=== PATIENT | male | born 1950 | race Caucasian/White ===

== ENCOUNTER → 2016-04-09 | Outpatient (CLI) | payer SELFPAY ==
[~2016-04-09] MED LIST: ALEVE220 M2 PO; Aldactone PO; CORGARD20 MG PO; Corgard PO; FERROUS SULFATE PO; Feosol PO; IRON325 MG PO; K-DUR20 MEQ PO; KLOR-CON 1010 MEQ PO; KLOR-CON M2020 MEQ PO; LASIX2 MG/1 ML PO; LASIX40 MG PO; Lasix PO; OMEPRAZOLE40 M1 PO; POTABA500 MG PO; PRILOSEC20 MG PO; PROTONIX40 MG PO; RANITIDINE HCL150 MG PO; SPIRONOLACTONE100 MG PO; SPIRONOLACTONE25 MG PO; ULTRAM50 MG PO; ZANTAC150 MG PO
== END | disposition home or self-care (01) ==
LOC: RAD 04-04 13:15 → EDSTATUS 08:30 → RAD 08:30
PROC: 0W9G3ZZ Drainage of Peritoneal Cavity, Percutaneous Approach (ICD-10-PCS; principal; 2016-04-09)
DX: K70.31 Alcoholic cirrhosis of liver with ascites (principal)

== ENCOUNTER → 2016-04-12 | Outpatient (CLI) | payer SELFPAY | END | disposition home or self-care (01) | LOC: RAD 08:18 → EDSTATUS 08:30 | PROC: 0W9G3ZZ Drainage of Peritoneal Cavity, Percutaneous Approach (ICD-10-PCS; principal; 2016-04-12) | DX: K70.31 Alcoholic cirrhosis of liver with ascites (principal) ==

== ENCOUNTER → 2016-04-15 | Outpatient (CLI) | payer SELFPAY | END | disposition home or self-care (01) | LOC: RAD 12:48 → EDSTATUS 13:30 → RAD 13:30 | PROC: 0W9G3ZZ Drainage of Peritoneal Cavity, Percutaneous Approach (ICD-10-PCS; principal; 2016-04-15) | DX: K70.31 Alcoholic cirrhosis of liver with ascites (principal) ==

== ENCOUNTER → 2016-04-18 | Outpatient (CLI) | payer SELFPAY | END | disposition home or self-care (01) | LOC: RAD 13:04 → EDSTATUS 13:15 → RAD 13:15 | PROC: 0W9G3ZZ Drainage of Peritoneal Cavity, Percutaneous Approach (ICD-10-PCS; principal; 2016-04-18) | DX: K70.31 Alcoholic cirrhosis of liver with ascites (principal) ==

== ENCOUNTER → 2016-04-22 | Outpatient (CLI) | payer SELFPAY | END | disposition home or self-care (01) | LOC: RAD 08:15 → EDSTATUS 08:15 → RAD 08:25 | PROC: 0W9G3ZZ Drainage of Peritoneal Cavity, Percutaneous Approach (ICD-10-PCS; principal; 2016-04-22) | DX: K70.31 Alcoholic cirrhosis of liver with ascites (principal) ==

== ENCOUNTER → 2016-04-26 | Outpatient (CLI) | payer OTHER | END | disposition home or self-care (01) | LOC: EDSTATUS 03-29 08:30 → RAD 03-29 08:30 | PROC: 0W9G3ZZ Drainage of Peritoneal Cavity, Percutaneous Approach (ICD-10-PCS; principal; 2016-04-26) | DX: K70.31 Alcoholic cirrhosis of liver with ascites (principal) ==

== ENCOUNTER → 2016-04-29 | Outpatient (CLI) | payer OTHER | END | disposition home or self-care (01) | LOC: RAD 08:07 → EDSTATUS 08:15 | PROC: 0W9G3ZZ Drainage of Peritoneal Cavity, Percutaneous Approach (ICD-10-PCS; principal; 2016-04-29) | DX: K70.31 Alcoholic cirrhosis of liver with ascites (principal) ==

== ENCOUNTER → 2016-05-02 | Outpatient (CLI) | payer OTHER | END | disposition home or self-care (01) | LOC: EDSTATUS 04-03 13:15 → RAD 04-03 13:15 | PROC: 0W9G3ZZ Drainage of Peritoneal Cavity, Percutaneous Approach (ICD-10-PCS; principal; 2016-05-02) | DX: K70.31 Alcoholic cirrhosis of liver with ascites (principal) ==

== ENCOUNTER → 2016-05-06 | Outpatient (CLI) | payer OTHER | END | disposition home or self-care (01) | LOC: RAD 12:47 → EDSTATUS 13:15 → RAD 13:15 | PROC: 0W9G3ZZ Drainage of Peritoneal Cavity, Percutaneous Approach (ICD-10-PCS; principal; 2016-05-06) | DX: K70.31 Alcoholic cirrhosis of liver with ascites (principal) ==

== ENCOUNTER 2016-05-09 15:30 | Emergency (ER) | payer OTHER ==
[~2016-05-09] VITALS: Ht 182.9 cm; Wt 86.5 kg
[2016-05-09 17:12] LABS: CHLORIDE 107 mEq/L (99-109); POTASSIUM 4.6 mEq/L (3.7-5.4); SODIUM 136 mEq/L (136-147)
[2016-05-09 17:14] LABS: GLUCOSE 99 mg/dL (70-99)
[2016-05-09 17:15] LABS: ANION GAP 8 MEQ/L (2-14)
[2016-05-09 17:18] LABS: GFR ESTIMATE (CALCULATED) > 59 mL/min/
[2016-05-09 17:19] LABS: UREA NITROGEN (BUN) 48 mg/dL (9-23)
[2016-05-09 17:45] VITALS: BP 106/57
== END 2016-05-09 17:46 | disposition home or self-care (01) ==
LOC: EME 15:30
PROVIDERS: Emergency Medicine
DX: K92.1 Melena (principal); D64.9 Anemia, unspecified; K74.60 Unspecified cirrhosis of liver; F17.200 Nicotine dependence, unspecified, uncomplicated
CPT/HCPCS: 80048; 86850; 86870; 86900; 86901; 86905; 86920; 86999; 99281; 99284

== ENCOUNTER → 2016-05-09 | Outpatient (CLI) | payer OTHER | END | disposition home or self-care (01) | LOC: RAD 12:56 → EDSTATUS 13:15 → RAD 13:15 | PROC: 0W9G3ZZ Drainage of Peritoneal Cavity, Percutaneous Approach (ICD-10-PCS; principal; 2016-05-09) | DX: K70.31 Alcoholic cirrhosis of liver with ascites (principal) ==

== ENCOUNTER → 2016-05-13 | Outpatient (CLI) | payer OTHER | END | disposition home or self-care (01) | LOC: RAD 12:56 → EDSTATUS 13:30 → RAD 13:30 | PROC: 0W9G3ZZ Drainage of Peritoneal Cavity, Percutaneous Approach (ICD-10-PCS; principal; 2016-05-13) | DX: K70.31 Alcoholic cirrhosis of liver with ascites (principal) ==

== ENCOUNTER → 2016-05-17 | Outpatient (CLI) | payer OTHER | END | disposition home or self-care (01) | LOC: RAD 07:38 → EDSTATUS 08:15 → RAD 08:15 | DX: K70.31 Alcoholic cirrhosis of liver with ascites (principal) ==

== ENCOUNTER → 2016-05-20 | Outpatient (CLI) | payer OTHER | END | disposition home or self-care (01) | LOC: RAD 11:18 → EDSTATUS 13:30 → RAD 13:30 | PROC: 0W9G3ZZ Drainage of Peritoneal Cavity, Percutaneous Approach (ICD-10-PCS; principal; 2016-05-20) | DX: K70.31 Alcoholic cirrhosis of liver with ascites (principal) ==

== ENCOUNTER → 2016-05-24 | Outpatient (CLI) | payer OTHER | END | disposition home or self-care (01) | LOC: RAD 07:02 → EDSTATUS 08:15 → RAD 08:15 | PROC: 0W9G3ZZ Drainage of Peritoneal Cavity, Percutaneous Approach (ICD-10-PCS; principal; 2016-05-24) | DX: K70.31 Alcoholic cirrhosis of liver with ascites (principal) ==

== ENCOUNTER → 2016-05-27 | Outpatient (CLI) | payer OTHER | END | disposition home or self-care (01) | LOC: RAD 13:14 → EDSTATUS 13:30 | PROC: 0W9G3ZZ Drainage of Peritoneal Cavity, Percutaneous Approach (ICD-10-PCS; principal; 2016-05-27) | DX: K70.31 Alcoholic cirrhosis of liver with ascites (principal) ==

== ENCOUNTER → 2016-05-30 | Outpatient (CLI) | payer OTHER | END | disposition home or self-care (01) | LOC: RAD 12:59 → EDSTATUS 13:30 → RAD 13:30 | PROC: 0W9G3ZZ Drainage of Peritoneal Cavity, Percutaneous Approach (ICD-10-PCS; principal; 2016-05-30) | DX: K70.31 Alcoholic cirrhosis of liver with ascites (principal) ==

== ENCOUNTER → 2016-06-03 | Outpatient (CLI) | payer OTHER | END | disposition home or self-care (01) | LOC: RAD 13:29 | PROC: 0W9G3ZZ Drainage of Peritoneal Cavity, Percutaneous Approach (ICD-10-PCS; principal; 2016-06-03) | DX: K70.31 Alcoholic cirrhosis of liver with ascites (principal) ==

== ENCOUNTER → 2016-06-06 | Outpatient (CLI) | payer OTHER ==
[~2016-06-06] MED LIST changes: +ALDACTONE25 MG PO; +ALDACTONE50 MG PO; +LASIX80 MG PO; +PANTOPRAZOLE SO40 MG PO; +RANITIDINE HCL150 M1 PO; +VENTOLIN HFA18 GM IH
== END | disposition home or self-care (01) ==
LOC: RAD 06:58
PROC: 0W9G3ZZ Drainage of Peritoneal Cavity, Percutaneous Approach (ICD-10-PCS; principal; 2016-06-06)
DX: K70.31 Alcoholic cirrhosis of liver with ascites (principal)

== ENCOUNTER 2016-06-08 09:50 | Inpatient (IN) | payer OTHER ==
[~2016-06-08] VITALS: Ht 177.8 cm; Wt 96.0 kg
[2016-06-08] VITALS (11 sets, daily range): BP systolic 97–112; BP diastolic 50–69
[~2016-06-08 09:50] MED LIST changes: -ALDACTONE25 MG PO; -ALDACTONE50 MG PO; -LASIX80 MG PO; -PANTOPRAZOLE SO40 MG PO; -RANITIDINE HCL150 M1 PO; -VENTOLIN HFA18 GM IH
[2016-06-08 11:12] LABS: INTER. NORMALIZED RATIO 1.3; PROTHROMBIN TIME 12.8 (9.2-11.2); PTT 25.4 (25-32)
[2016-06-08 11:15] LABS: EOSINOPHIL (%) 0.4 % (0-5); HEMATOCRIT 22.4 % (38.0-50.0); IMMATURE GRANULOCYTE (%) 0.2 % (0.0-0.7); IMMATURE GRANULOCYTE COUNT 0.1 K/uL; LYMPHOCYTE COUNT 0.4 K/uL (1.0-2.8); MCH 21.3 PG (29.0-34.0); MCHC 29.5 G/DL (30.0-36.0); MCV 72.3 FL (86-99); MEAN PLAT.VOLUME 10.7 uM^3 (9.0-12.4); MONOCYTE (%) 8.9 % (3-12); MONOCYTE COUNT 0.5 K/uL (0-0.8); NEUTROPHIL COUNT 4.1 K/uL (1.8-6.4); PLATELET COUNT 109 K/uL (156-360); RBC DIS.WIDTH-CV 20.3 % (11.8-14.6); RBC DIS.WIDTH-SD 51.6 % (39-53); WHITE BLOOD COUNT 5.1 K/uL (4.1-10.2)
[2016-06-08 11:19] LABS: CHLORIDE 104 mEq/L (99-109); POTASSIUM 4.6 mEq/L (3.7-5.4); SODIUM 132 mEq/L (136-147)
[2016-06-08 11:21] LABS: GLUCOSE 114 mg/dL (70-99)
[2016-06-08 11:22] LABS: ANION GAP 5 MEQ/L (2-14)
[2016-06-08 11:23] LABS: TOTAL BILIRUBIN 1.2 mg/dL (0.0-1.0)
[2016-06-08 11:24] LABS: ALKALINE PHOSPHATASE 83 IU/L (3-129); TROP-I INTERPRETATION NEGATIVE; TROPONIN-I < 0.01 ng/mL (0.0-0.30)
[2016-06-08 11:25] LABS: GFR ESTIMATE (CALCULATED) > 59 mL/min/
[2016-06-08 11:26] LABS: UREA NITROGEN (BUN) 24 mg/dL (9-23)
[2016-06-08 11:28] LABS: LIPASE 71 U/L (1.0-51.0)
[2016-06-08 11:52] LABS: PLAT.SUFFICIENCY DECREASED; USER ID MCB
[2016-06-08] MEDS ORDERED: LASIX80 MG PO (14:25)
[2016-06-08] MEDS ORDERED: ZANTAC150 MG PO (14:26)
[2016-06-08] MEDS ORDERED: ALDACTONE50 MG PO (14:27)
[2016-06-08] MEDS ORDERED: ALDACTONE25 MG PO (14:27)
[2016-06-09] VITALS (13 sets, daily range): BP systolic 78–113; BP diastolic 46–70
[2016-06-09 03:27] LABS: HEMATOCRIT 25.2 % (38.0-50.0); MCV 74.6 FL (86-99)
[2016-06-09 10:29] LABS: INTER. NORMALIZED RATIO 1.3; PROTHROMBIN TIME 12.8 (9.2-11.2)
[2016-06-09 10:34] LABS: EOSINOPHIL (%) 4.4 % (0-5); EOSINOPHIL COUNT 0.1 K/uL (0-0.3); HEMATOCRIT 25.5 % (38.0-50.0); IMMATURE GRANULOCYTE (%) 0.3 % (0.0-0.7); LYMPHOCYTE COUNT 0.6 K/uL (1.0-2.8); MCH 23.2 PG (29.0-34.0); MONOCYTE (%) 12.5 % (3-12); MONOCYTE COUNT 0.4 K/uL (0-0.8); NEUTROPHIL (%) 61.9 % (45-76); NEUTROPHIL COUNT 1.8 K/uL (1.8-6.4); RBC DIS.WIDTH-CV 20.1 % (11.8-14.6); RBC DIS.WIDTH-SD 54.9 % (39-53)
[2016-06-09 10:55] LABS: ALKALINE PHOSPHATASE 71 IU/L (3-129); ANION GAP 5 MEQ/L (2-14); CHLORIDE 104 MEQ/L (99-109); GFR ESTIMATE (CALCULATED) > 59 mL/min/; GLUCOSE 106 mg/dL (70-99); POTASSIUM 4.4 MEQ/L (3.7-5.4); SAMPLE HEMOLYSIS CHECK 0; SAMPLE ICTERIC CHECK 0; SAMPLE LIPEMIA CHECK 0; SODIUM 131 MEQ/L (136-147); TOTAL BILIRUBIN 1.3 MG/DL (0.0-1.0); UREA NITROGEN (BUN) 25 mg/dL (9-23)
[2016-06-09 11:14] LABS: PLAT.SUFFICIENCY DECREASED; USER ID TLW
[2016-06-09 11:28] LABS: PLATELET COUNT 60 K/uL (156-360)
[2016-06-09 13:43] LABS: TYPE OF FLUID PERITONEAL
[2016-06-09 14:11] LABS: BODY FLUID RBC'S 2000 /MM^3 (0-100); BODY FLUID WBC'S 102 /MM^3 (0-500)
[2016-06-09 14:46] LABS: BODY FLUID EOSINOPHILS 0 % (0-25); MONO RAW COUNT 84; MONONUCLEAR WBC'S 84 %; POLY RAW COUNT 16; POLYNUCLEAR WBC'S 16 % (0-25)
[2016-06-10] VITALS (8 sets, daily range): BP systolic 11–116; BP diastolic 44–64
[2016-06-10 07:31] LABS: ANION GAP 6 MEQ/L (2-14); CHLORIDE 102 MEQ/L (99-109); GFR ESTIMATE (CALCULATED) > 59 mL/min/; GLUCOSE 83 mg/dL (70-99); POTASSIUM 3.8 MEQ/L (3.7-5.4); SAMPLE HEMOLYSIS CHECK 0; SAMPLE ICTERIC CHECK 0; SAMPLE LIPEMIA CHECK 0; SODIUM 132 MEQ/L (136-147); UREA NITROGEN (BUN) 21 mg/dL (9-23)
[2016-06-10 07:38] LABS: EOSINOPHIL (%) 3.9 % (0-5); EOSINOPHIL COUNT 0.1 K/uL (0-0.3); HEMATOCRIT 24.8 % (38.0-50.0); IMMATURE GRANULOCYTE (%) 0.4 % (0.0-0.7); LYMPHOCYTE COUNT 0.5 K/uL (1.0-2.8); MCH 22.9 PG (29.0-34.0); MCHC 30.6 G/DL (30.0-36.0); MCV 74.7 FL (86-99); MONOCYTE (%) 14.5 % (3-12); MONOCYTE COUNT 0.4 K/uL (0-0.8); NEUTROPHIL (%) 62.4 % (45-76); NEUTROPHIL COUNT 1.6 K/uL (1.8-6.4); RBC DIS.WIDTH-CV 20.1 % (11.8-14.6); RED BLOOD COUNT 3.32 M/uL (4.00-5.50); WHITE BLOOD COUNT 2.6 K/uL (4.1-10.2)
[2016-06-10 07:41] LABS: PLAT.SUFFICIENCY DECREASED; PLATELET COUNT 54 K/uL (156-360); USER ID STC
[2016-06-10] MEDS ORDERED: PANTOPRAZOLE SO40 MG PO (14:32)
[2016-06-10] MEDS ORDERED: VENTOLIN HFA18 GM IH (14:37)
[2016-06-10 17:31] LABS: HEMATOCRIT 31.9 % (38.0-50.0); HEMATOLOGY COMMENT 1 SMEAR COMPATIBLE; MCH 23.6 PG (29.0-34.0); MCHC 30.7 G/DL (30.0-36.0); MCV 76.9 FL (86-99); RBC DIS.WIDTH-CV 20.2 % (11.8-14.6); RBC DIS.WIDTH-SD 55.8 % (39-53)
[2016-06-10 17:36] LABS: PLATELET COUNT 78 K/uL (156-360); RED BLOOD COUNT 4.15 M/uL (4.00-5.50); WHITE BLOOD COUNT 3.9 K/uL (4.1-10.2)
[2016-06-13] MEDS ORDERED: RANITIDINE HCL150 M1 PO (13:10)
== END 2016-06-10 18:20 | disposition home or self-care (01) | DRG 378 ==
LOC: EME 09:50 → 4EAST 14:19 → EDOF 14:19 → 4EAST 16:04
PROVIDERS: Emergency Medicine; Internal Medicine; Specialist
PROC: 30233N1 Transfusion of Nonautologous Red Blood Cells into Peripheral Vein, Percutaneous Approach (ICD-10-PCS; principal; 2016-06-08)
PROC: 0W9G3ZZ Drainage of Peritoneal Cavity, Percutaneous Approach (ICD-10-PCS; 2016-06-09)
DX: K92.1 Melena (principal); D62 Acute posthemorrhagic anemia; K76.6 Portal hypertension; D61.818 Other pancytopenia; D68.4 Acquired coagulation factor deficiency; K31.89 Other diseases of stomach and duodenum; K70.31 Alcoholic cirrhosis of liver with ascites; F10.21 Alcohol dependence, in remission; E83.51 Hypocalcemia; F17.210 Nicotine dependence, cigarettes, uncomplicated; J44.9 Chronic obstructive pulmonary disease, unspecified; E66.9 Obesity, unspecified; Z68.30 Body mass index [BMI] 30.0-30.9, adult
CPT/HCPCS: 71010; 80048; 80053; 81003; 82040; 83690; 84484; 85007; 85014; 85018; 85025; 85027; 85610; 85730; 86850; 86870; 86900; 86901; 86905; 86920; 87070; 87075; 87205; 88108; 89051; 93005; 99281; 99285; C9113; J0610; J0696; J2354; J2405; J7030; J7050; P9016; P9040; P9047

== ENCOUNTER → 2016-06-13 | Outpatient (CLI) | payer OTHER ==
[~2016-06-13] MED LIST changes: +ALDACTONE25 MG PO; +ALDACTONE50 MG PO; +LASIX80 MG PO; +PANTOPRAZOLE SO40 MG PO; +RANITIDINE HCL150 M1 PO; +VENTOLIN HFA18 GM IH
== END | disposition home or self-care (01) ==
LOC: RAD 12:11
PROC: 0W9G3ZZ Drainage of Peritoneal Cavity, Percutaneous Approach (ICD-10-PCS; principal; 2016-06-13)
DX: K70.31 Alcoholic cirrhosis of liver with ascites (principal)

== ENCOUNTER → 2016-06-17 | Outpatient (CLI) | payer OTHER | END | disposition home or self-care (01) | LOC: RAD 12:47 | PROC: 0W9G3ZZ Drainage of Peritoneal Cavity, Percutaneous Approach (ICD-10-PCS; principal; 2016-06-17) | DX: K70.31 Alcoholic cirrhosis of liver with ascites (principal) ==

== ENCOUNTER → 2016-06-20 | Outpatient (CLI) | payer OTHER ==
[2016-06-20 09:47] LABS: HEMATOCRIT 24.8 % (38.0-50.0); MCV 77.7 FL (86-99)
[2016-06-20 09:47] LABS: TYPE OF FLUID PARACENTESIS
[2016-06-20 10:51] LABS: BODY FLUID RBC'S 170000 /MM^3 (0-100); BODY FLUID WBC'S 184 /MM^3 (0-500)
[2016-06-20 11:26] LABS: BODY FLUID EOSINOPHILS 0 % (0-25); MONO RAW COUNT 90; MONONUCLEAR WBC'S 90 %; POLY RAW COUNT 10; POLYNUCLEAR WBC'S 10 % (0-25)
== END | disposition home or self-care (01) ==
LOC: RAD 07:01
PROVIDERS: Internal Medicine; Radiology Diagnostic Radiology
PROC: 0W9G3ZZ Drainage of Peritoneal Cavity, Percutaneous Approach (ICD-10-PCS; principal; 2016-06-20)
DX: K70.31 Alcoholic cirrhosis of liver with ascites (principal)
CPT/HCPCS: 85014; 85018; 87070; 87075; 87205; 89051

== ENCOUNTER → 2016-06-24 | Outpatient (CLI) | payer OTHER | END | disposition home or self-care (01) | LOC: RAD 12:25 | PROC: 0W9G3ZZ Drainage of Peritoneal Cavity, Percutaneous Approach (ICD-10-PCS; principal; 2016-06-24) | DX: K70.31 Alcoholic cirrhosis of liver with ascites (principal) ==

== ENCOUNTER → 2016-06-27 | Outpatient (CLI) | payer OTHER | END | disposition home or self-care (01) | LOC: RAD 11:58 | PROC: 0W9G3ZZ Drainage of Peritoneal Cavity, Percutaneous Approach (ICD-10-PCS; principal; 2016-06-27) | DX: K70.31 Alcoholic cirrhosis of liver with ascites (principal) ==

== ENCOUNTER → 2016-07-01 | Outpatient (CLI) | payer OTHER | END | disposition home or self-care (01) | LOC: RAD 12:56 | PROC: 0W9G3ZZ Drainage of Peritoneal Cavity, Percutaneous Approach (ICD-10-PCS; principal; 2016-07-01) | DX: K70.31 Alcoholic cirrhosis of liver with ascites (principal) ==

== ENCOUNTER → 2016-07-04 | Outpatient (CLI) | payer OTHER | END | disposition home or self-care (01) | LOC: RAD 12:40 | PROC: 0W9G3ZZ Drainage of Peritoneal Cavity, Percutaneous Approach (ICD-10-PCS; principal; 2016-07-04) | DX: K70.31 Alcoholic cirrhosis of liver with ascites (principal) ==

== ENCOUNTER → 2016-07-08 | Outpatient (CLI) | payer OTHER | END | disposition home or self-care (01) | LOC: RAD 11:12 | PROC: 0W9G3ZZ Drainage of Peritoneal Cavity, Percutaneous Approach (ICD-10-PCS; principal; 2016-07-08) | DX: K70.31 Alcoholic cirrhosis of liver with ascites (principal) ==

== ENCOUNTER → 2016-07-11 | Outpatient (CLI) | payer OTHER | END | disposition home or self-care (01) | LOC: RAD 12:24 | PROC: 0W9G3ZZ Drainage of Peritoneal Cavity, Percutaneous Approach (ICD-10-PCS; principal; 2016-07-11) | DX: K70.31 Alcoholic cirrhosis of liver with ascites (principal) ==

== ENCOUNTER → 2016-07-15 | Outpatient (CLI) | payer OTHER | END | disposition home or self-care (01) | LOC: RAD 12:19 | PROC: 0W9G3ZZ Drainage of Peritoneal Cavity, Percutaneous Approach (ICD-10-PCS; principal; 2016-07-15) | DX: K70.31 Alcoholic cirrhosis of liver with ascites (principal) ==

== ENCOUNTER → 2016-07-17 | Outpatient (CLI) | payer OTHER | END | disposition home or self-care (01) | LOC: RAD 09:27 | PROC: 0W9G3ZZ Drainage of Peritoneal Cavity, Percutaneous Approach (ICD-10-PCS; principal; 2016-07-17) | DX: K70.31 Alcoholic cirrhosis of liver with ascites (principal) ==

== ENCOUNTER → 2016-07-19 | Outpatient (CLI) | payer OTHER | END | disposition home or self-care (01) | LOC: RAD 07:18 | PROC: 0W9G3ZZ Drainage of Peritoneal Cavity, Percutaneous Approach (ICD-10-PCS; principal; 2016-07-19) | DX: K70.31 Alcoholic cirrhosis of liver with ascites (principal) ==

== ENCOUNTER → 2016-07-22 | Outpatient (CLI) | payer OTHER | END | disposition home or self-care (01) | LOC: RAD 12:00 | PROC: 0W9G3ZZ Drainage of Peritoneal Cavity, Percutaneous Approach (ICD-10-PCS; principal; 2016-07-22) | DX: K70.31 Alcoholic cirrhosis of liver with ascites (principal) ==

== ENCOUNTER → 2016-07-25 | Outpatient (CLI) | payer OTHER | END | disposition home or self-care (01) | LOC: RAD 07:11 | PROC: 0W9G3ZZ Drainage of Peritoneal Cavity, Percutaneous Approach (ICD-10-PCS; principal; 2016-07-25) | DX: K70.31 Alcoholic cirrhosis of liver with ascites (principal) ==

== ENCOUNTER → 2016-07-29 | Outpatient (CLI) | payer OTHER | END | disposition home or self-care (01) | LOC: RAD 12:34 | PROC: 0W9G3ZZ Drainage of Peritoneal Cavity, Percutaneous Approach (ICD-10-PCS; principal; 2016-07-29) | DX: K70.31 Alcoholic cirrhosis of liver with ascites (principal) ==

== ENCOUNTER → 2016-08-01 | Outpatient (CLI) | payer OTHER | END | disposition home or self-care (01) | LOC: RAD 11:40 | PROC: 0W9G3ZZ Drainage of Peritoneal Cavity, Percutaneous Approach (ICD-10-PCS; principal; 2016-08-01) | DX: K70.31 Alcoholic cirrhosis of liver with ascites (principal) ==

== ENCOUNTER → 2016-08-05 | Outpatient (CLI) | payer OTHER | END | disposition home or self-care (01) | LOC: RAD 12:28 | PROC: 0W9G3ZZ Drainage of Peritoneal Cavity, Percutaneous Approach (ICD-10-PCS; principal; 2016-08-05) | DX: K70.31 Alcoholic cirrhosis of liver with ascites (principal) ==

== ENCOUNTER → 2016-08-08 | Outpatient (CLI) | payer OTHER | END | disposition home or self-care (01) | LOC: RAD 12:35 | PROC: 0W9G3ZZ Drainage of Peritoneal Cavity, Percutaneous Approach (ICD-10-PCS; principal; 2016-08-08) | DX: K70.31 Alcoholic cirrhosis of liver with ascites (principal) ==

== ENCOUNTER → 2016-08-12 | Outpatient (CLI) | payer OTHER | END | disposition home or self-care (01) | LOC: RAD 12:30 | PROC: 0W9G3ZZ Drainage of Peritoneal Cavity, Percutaneous Approach (ICD-10-PCS; principal; 2016-08-12) | DX: K70.31 Alcoholic cirrhosis of liver with ascites (principal) ==

== ENCOUNTER → 2016-08-15 | Outpatient (CLI) | payer OTHER | END | disposition home or self-care (01) | LOC: RAD 13:05 | PROC: 0W9G3ZZ Drainage of Peritoneal Cavity, Percutaneous Approach (ICD-10-PCS; principal; 2016-08-15) | DX: K70.31 Alcoholic cirrhosis of liver with ascites (principal) ==

== ENCOUNTER → 2016-08-19 | Outpatient (CLI) | payer OTHER | END | disposition home or self-care (01) | LOC: RAD 11:59 | PROC: 0W9G3ZZ Drainage of Peritoneal Cavity, Percutaneous Approach (ICD-10-PCS; principal; 2016-08-19) | DX: K70.31 Alcoholic cirrhosis of liver with ascites (principal) ==

== ENCOUNTER → 2016-08-22 | Outpatient (CLI) | payer OTHER | END | disposition home or self-care (01) | LOC: RAD 07:31 | PROC: 0W9G3ZZ Drainage of Peritoneal Cavity, Percutaneous Approach (ICD-10-PCS; principal; 2016-08-22) | DX: K70.31 Alcoholic cirrhosis of liver with ascites (principal) ==

== ENCOUNTER → 2016-08-26 | Outpatient (CLI) | payer OTHER | END | disposition home or self-care (01) | LOC: RAD 11:07 | PROC: 0W9G3ZZ Drainage of Peritoneal Cavity, Percutaneous Approach (ICD-10-PCS; principal; 2016-08-26) | DX: K70.31 Alcoholic cirrhosis of liver with ascites (principal) ==

== ENCOUNTER → 2016-08-29 | Outpatient (CLI) | payer OTHER | END | disposition home or self-care (01) | LOC: RAD 13:01 | PROC: 0W9G3ZZ Drainage of Peritoneal Cavity, Percutaneous Approach (ICD-10-PCS; principal; 2016-08-29) | DX: K70.31 Alcoholic cirrhosis of liver with ascites (principal) ==

== ENCOUNTER 2016-09-04 13:14 | Inpatient (IN) | payer OTHER ==
[~2016-09-04] VITALS: Ht 175.3 cm; Wt 95.3 kg
[2016-09-04] VITALS (10 sets, daily range): BP systolic 78–93; BP diastolic 52–60
[2016-09-04 13:46] LABS: HEMATOCRIT 30.3 % (38.0-50.0); MCH 19.3 PG (29.0-34.0); MCHC 27.4 G/DL (30.0-36.0); MCV 70.3 FL (86-99); PLATELET COUNT 156 K/uL (156-360); RBC DIS.WIDTH-CV 20.8 % (11.8-14.6); RBC DIS.WIDTH-SD 51.8 % (39-53); RED BLOOD COUNT 4.31 M/uL (4.00-5.50); WHITE BLOOD COUNT 7.3 K/uL (4.1-10.2)
[2016-09-04 13:48] LABS: INTER. NORMALIZED RATIO 1.2; PROTHROMBIN TIME 12.5 (9.2-11.2); PTT 23.7 (25-32)
[2016-09-04 13:49] LABS: CHLORIDE 105 mEq/L (99-109); POTASSIUM 4.5 mEq/L (3.7-5.4); SODIUM 135 mEq/L (136-147)
[2016-09-04 13:51] LABS: GLUCOSE 132 mg/dL (70-99)
[2016-09-04 13:53] LABS: ANION GAP 10 MEQ/L (2-14)
[2016-09-04 13:55] LABS: ALKALINE PHOSPHATASE 86 IU/L (3-129); GFR ESTIMATE (CALCULATED) > 59 mL/min/
[2016-09-04 13:56] LABS: UREA NITROGEN (BUN) 46 mg/dL (9-23)
[2016-09-04 14:01] LABS: TROP-I INTERPRETATION NEGATIVE; TROPONIN-I < 0.01 ng/mL (0.0-0.30)
[2016-09-04 19:20] LABS: METH RESISTANT S AUREUS PCR NEGATIVE (NEGATIVE)
[2016-09-04 19:24] LABS: PROBE CHECK PASS; SPECIMEN PROCESSING CONTROL PASS
[2016-09-04 23:40] LABS: POINT-OF-CARE METER ID UU13113803
[2016-09-05] VITALS (25 sets, daily range): BP systolic 70–91; BP diastolic 46–61
[2016-09-05 06:12] LABS: HEMATOCRIT 19.7 % (38.0-50.0); MCH 20.3 PG (29.0-34.0); MCHC 29.4 G/DL (30.0-36.0); MCV 68.9 FL (86-99); RBC DIS.WIDTH-CV 20.4 % (11.8-14.6); RBC DIS.WIDTH-SD 50.1 % (39-53)
[2016-09-05 07:12] LABS: ALKALINE PHOSPHATASE 57 IU/L (3-129); ANION GAP 5 MEQ/L (2-14); CHLORIDE 107 MEQ/L (99-109); GFR ESTIMATE (CALCULATED) > 59 mL/min/; GLUCOSE 91 mg/dL (70-99); POTASSIUM 4.4 MEQ/L (3.7-5.4); SAMPLE HEMOLYSIS CHECK 0; SAMPLE ICTERIC CHECK 0; SAMPLE LIPEMIA CHECK 0; SODIUM 134 MEQ/L (136-147); TOTAL BILIRUBIN 0.5 MG/DL (0.0-1.0); UREA NITROGEN (BUN) 51 mg/dL (9-23)
[2016-09-05 07:24] LABS: INTER. NORMALIZED RATIO 1.3; PROTHROMBIN TIME 13.4 (9.2-11.2); PTT 28.4 (25-32)
[2016-09-05 08:14] LABS: PLAT.SUFFICIENCY DECREASED
[2016-09-05 08:20] LABS: PLATELET COUNT 78 K/uL (156-360); RED BLOOD COUNT 2.86 M/uL (4.00-5.50); WHITE BLOOD COUNT 3.2 K/uL (4.1-10.2)
[2016-09-05 12:49] LABS: POINT-OF-CARE METER ID UU13113731
[2016-09-05 17:28] LABS: POINT-OF-CARE METER ID UU13113731; POINT-OF-CARE USER ID 606021424
[2016-09-05 20:30] LABS: HEMATOCRIT 20.2 % (38.0-50.0); MCH 20.3 PG (29.0-34.0); MCHC 29.2 G/DL (30.0-36.0); MCV 69.7 FL (86-99); RBC DIS.WIDTH-CV 20.4 % (11.8-14.6); RBC DIS.WIDTH-SD 50.6 % (39-53); WHITE BLOOD COUNT 3.8 K/uL (4.1-10.2)
[2016-09-05 20:46] LABS: ANION GAP 7 MEQ/L (2-14); CHLORIDE 104 MEQ/L (99-109); POTASSIUM 3.3 MEQ/L (3.7-5.4); SAMPLE HEMOLYSIS CHECK 0; SAMPLE ICTERIC CHECK 0; SAMPLE LIPEMIA CHECK 0; SODIUM 133 MEQ/L (136-147); TOTAL BILIRUBIN 0.6 MG/DL (0.0-1.0)
[2016-09-05 20:49] LABS: ALKALINE PHOSPHATASE 59 IU/L (3-129); GFR ESTIMATE (CALCULATED) > 59 mL/min/; GLUCOSE 113 mg/dL (70-99); UREA NITROGEN (BUN) 49 mg/dL (9-23)
[2016-09-05 21:03] LABS: PLAT.SUFFICIENCY DECREASED; PLATELET CLUMPS PRESENT - PLATELET COUNTS APPEARS DECREASED
[2016-09-05 21:08] LABS: PLATELET COUNT UNABLE TO REPORT K/uL (156-360)
[2016-09-06] VITALS (16 sets, daily range): BP systolic 67–90; BP diastolic 34–53
[2016-09-06 09:29] LABS: HEMATOCRIT 25.1 % (38.0-50.0); MCH 21.8 PG (29.0-34.0); MCHC 29.9 G/DL (30.0-36.0); RBC DIS.WIDTH-CV 22.5 % (11.8-14.6); RBC DIS.WIDTH-SD 59.1 % (39-53); RED BLOOD COUNT 3.44 M/uL (4.00-5.50); WHITE BLOOD COUNT 4.6 K/uL (4.1-10.2)
[2016-09-06 09:30] LABS: PLATELET COUNT 74 K/uL (156-360)
[2016-09-06 12:29] LABS: HEMATOCRIT 24.1 % (38.0-50.0); MCH 21.6 PG (29.0-34.0); MCHC 29.5 G/DL (30.0-36.0); MCV 73.3 FL (86-99); MEAN PLAT.VOLUME 10.2 uM^3 (9.0-12.4); PLATELET COUNT 69 K/uL (156-360); RBC DIS.WIDTH-SD 57.8 % (39-53); RED BLOOD COUNT 3.29 M/uL (4.00-5.50); WHITE BLOOD COUNT 4.1 K/uL (4.1-10.2)
[2016-09-06 13:06] LABS: ANION GAP 7 MEQ/L (2-14); CHLORIDE 104 MEQ/L (99-109); GFR ESTIMATE (CALCULATED) > 59 mL/min/; GLUCOSE 121 mg/dL (70-99); POTASSIUM 3.8 MEQ/L (3.7-5.4); SAMPLE HEMOLYSIS CHECK 0; SAMPLE ICTERIC CHECK 0; SAMPLE LIPEMIA CHECK 0; SODIUM 132 MEQ/L (136-147); UREA NITROGEN (BUN) 43 mg/dL (9-23)
== END 2016-09-06 15:28 | disposition left against medical advice (07) | DRG 378 ==
LOC: EME 13:14 → 4WEST 15:59 → EDOF 15:59 → 4WEST 16:51
PROVIDERS: Emergency Medicine; Internal Medicine Critical Care Medicine; Obstetrics & Gynecology; Specialist
PROC: 30233N1 Transfusion of Nonautologous Red Blood Cells into Peripheral Vein, Percutaneous Approach (ICD-10-PCS; principal; 2016-09-05)
PROC: 0W9G30Z Drainage of Peritoneal Cavity with Drainage Device, Percutaneous Approach (ICD-10-PCS; 2016-09-06)
DX: K92.0 Hematemesis (principal); D62 Acute posthemorrhagic anemia; K76.6 Portal hypertension; K92.1 Melena; K70.31 Alcoholic cirrhosis of liver with ascites; I10 Essential (primary) hypertension; I85.10 Secondary esophageal varices without bleeding; I95.9 Hypotension, unspecified; K42.9 Umbilical hernia without obstruction or gangrene; F10.21 Alcohol dependence, in remission; F43.9 Reaction to severe stress, unspecified; R73.9 Hyperglycemia, unspecified; L80 Vitiligo; K70.9 Alcoholic liver disease, unspecified; K31.89 Other diseases of stomach and duodenum; Z91.19 Patient's noncompliance with other medical treatment and regimen; Z82.49 Family history of ischemic heart disease and other diseases of the circulatory system; Z82.3 Family history of stroke
CPT/HCPCS: 80048; 80053; 82140; 82948; 84484; 85027; 85610; 85730; 86860; 86870; 86880; 86880 90; 86885 90; 86900; 86900 90; 86901; 86901 90; 86905; 86905 90; 86906 90; 86920; 87070; 87075; 87205; 87641; 93005; 93306; 99281; 99285; C9113; J1815; J2354; J2405; J7030; J7050; P9016

== ENCOUNTER → 2016-09-09 | Outpatient (CLI) | payer OTHER | END | disposition home or self-care (01) | LOC: RAD 12:53 | PROC: 0W9G3ZZ Drainage of Peritoneal Cavity, Percutaneous Approach (ICD-10-PCS; principal; 2016-09-09) | DX: K70.31 Alcoholic cirrhosis of liver with ascites (principal) ==

== ENCOUNTER → 2016-09-12 | Outpatient (CLI) | payer OTHER | END | disposition home or self-care (01) | LOC: RAD 09:15 | PROC: 0W9G3ZZ Drainage of Peritoneal Cavity, Percutaneous Approach (ICD-10-PCS; principal; 2016-09-12) | DX: K70.31 Alcoholic cirrhosis of liver with ascites (principal) ==

== ENCOUNTER → 2016-09-19 | Outpatient (CLI) | payer OTHER | END | disposition home or self-care (01) | LOC: RAD 08:12 | PROC: 0W9G3ZZ Drainage of Peritoneal Cavity, Percutaneous Approach (ICD-10-PCS; principal; 2016-09-19) | DX: K70.31 Alcoholic cirrhosis of liver with ascites (principal) ==

== ENCOUNTER → 2016-09-23 | Outpatient (CLI) | payer OTHER | END | disposition home or self-care (01) | LOC: RAD 11:19 | PROC: 0W9G3ZZ Drainage of Peritoneal Cavity, Percutaneous Approach (ICD-10-PCS; principal; 2016-09-23) | DX: K70.31 Alcoholic cirrhosis of liver with ascites (principal) ==

== ENCOUNTER → 2016-09-26 | Outpatient (CLI) | payer OTHER | END | disposition home or self-care (01) | LOC: RAD 11:12 | PROC: 0W9G3ZZ Drainage of Peritoneal Cavity, Percutaneous Approach (ICD-10-PCS; principal; 2016-09-26) | DX: K70.31 Alcoholic cirrhosis of liver with ascites (principal) ==

== ENCOUNTER → 2016-09-30 | Outpatient (CLI) | payer OTHER | END | disposition home or self-care (01) | LOC: RAD 12:10 | PROC: 0W9G3ZZ Drainage of Peritoneal Cavity, Percutaneous Approach (ICD-10-PCS; principal; 2016-09-30) | DX: K70.31 Alcoholic cirrhosis of liver with ascites (principal) ==

== ENCOUNTER 2016-10-01 16:43 | Inpatient (IN) | payer OTHER ==
[~2016-10-01] VITALS: Ht 182.9 cm; Wt 83.5 kg
[2016-10-01 18:14] LABS: CHLORIDE 99 mEq/L (99-109); POTASSIUM 4.5 mEq/L (3.7-5.4); SODIUM 122 mEq/L (136-147)
[2016-10-01 18:16] LABS: GLUCOSE 116 mg/dL (70-99)
[2016-10-01 18:17] LABS: ANION GAP 9 MEQ/L (2-14)
[2016-10-01 18:18] LABS: TOTAL BILIRUBIN 0.6 mg/dL (0.0-1.0)
[2016-10-01 18:19] LABS: ALKALINE PHOSPHATASE 80 IU/L (3-129); GFR ESTIMATE (CALCULATED) 23 mL/min/
[2016-10-01 18:21] LABS: UREA NITROGEN (BUN) 82 mg/dL (9-23)
[2016-10-01] MEDS ORDERED: PROTONIX40 MG PO (18:29)
[2016-10-01 18:42] LABS: HEMATOCRIT 26.5 % (38.0-50.0); MCH 20.8 PG (29.0-34.0); MCHC 29.8 G/DL (30.0-36.0); MCV 69.7 FL (86-99); RBC DIS.WIDTH-CV 21.7 % (11.8-14.6); RBC DIS.WIDTH-SD 53.3 % (39-53); WHITE BLOOD COUNT 12.7 K/uL (4.1-10.2)
[2016-10-01 18:56] LABS: EOSINOPHIL (%) 0.2 % (0-5); IMMATURE GRANULOCYTE (%) 1.5 % (0.0-0.7); IMMATURE GRANULOCYTE COUNT 0.2 K/uL; INSTRUMENT ABS NEUTROPHIL CT 11.7 K/uL; LYMPHOCYTE COUNT 0.3 K/uL (1.0-2.8); MONOCYTE (%) 4.3 % (3-12); MONOCYTE COUNT 0.6 K/uL (0-0.8); NEUTROPHIL (%) 91.7 % (45-76); NEUTROPHIL COUNT 11.7 K/uL (1.8-6.4)
[2016-10-01 18:57] LABS: PLATELET COUNT 139 K/uL (156-360)
[2016-10-01 20:24] LABS: INTER. NORMALIZED RATIO 1.3; PROTHROMBIN TIME 12.8 (9.2-11.2); PTT 31.8 (25-32)
[2016-10-01 20:48] LABS: HEMATOCRIT 27.4 % (38.0-50.0); MCH 21.5 PG (29.0-34.0); MCHC 28.8 G/DL (30.0-36.0); NRBC (%) 0.3 /100 WBC (0-0); RBC DIS.WIDTH-CV 23.3 % (11.8-14.6); RED BLOOD COUNT 3.67 M/uL (4.00-5.50); WHITE BLOOD COUNT 6.3 K/uL (4.1-10.2)
[2016-10-01 21:01] LABS: DIRECT BILIRUBIN 0.7 mg/dL (0.0-0.3)
[2016-10-01 21:09] LABS: MCV 74.7 FL (86-99)
[2016-10-01 21:10] LABS: MEAN PLAT.VOLUME 10.1 uM^3 (9.0-12.4)
[2016-10-01 21:44] LABS: EOSINOPHIL (%) 0.6 % (0-5); IMMATURE GRANULOCYTE (%) 3.4 % (0.0-0.7); IMMATURE GRANULOCYTE COUNT 0.2 K/uL; INSTRUMENT ABS NEUTROPHIL CT 5.4 K/uL; LYMPHOCYTE COUNT 0.5 K/uL (1.0-2.8); MONOCYTE (%) 1.3 % (3-12); MONOCYTE COUNT 0.1 K/uL (0-0.8); NEUTROPHIL (%) 86.2 % (45-76); NEUTROPHIL COUNT 5.4 K/uL (1.8-6.4); PLATELET CLUMPS PRESENT - PLATELET COUNT APPEARS ADQ.
[2016-10-02] VITALS (19 sets, daily range): BP systolic 54–124; BP diastolic 28–72
[2016-10-02 02:04] LABS: METH RESISTANT S AUREUS PCR NEGATIVE (NEGATIVE)
[2016-10-02 02:07] LABS: PROBE CHECK PASS; SPECIMEN PROCESSING CONTROL PASS
[2016-10-02 06:48] LABS: ADD MIUA? NO; BILIRUBIN NEGATIVE; BLOOD NEGATIVE; COLOR YELLOW ((YELLOW)); GLUCOSE (STRIP) NEGATIVE; KETONES NEGATIVE; LEUKOCYTES NEGATIVE; NITRITE NEGATIVE; PROTEIN (STRIP) NEGATIVE; SPECIFIC GRAVITY 1.011 (1.000-1.030); UCUL ADDED? NO; UROBILINOGEN 0.2 MG/DL (0.2-1.0)
[2016-10-02 08:56] LABS: INTER. NORMALIZED RATIO 1.3; PROTHROMBIN TIME 13.2 (9.2-11.2)
[2016-10-02 09:01] LABS: HEMATOCRIT 27.3 % (38.0-50.0); MCHC 30.4 G/DL (30.0-36.0); MCV 72.4 FL (86-99); MEAN PLAT.VOLUME 10.3 uM^3 (9.0-12.4); NRBC (%) 0.1 /100 WBC (0-0); RBC DIS.WIDTH-CV 22.8 % (11.8-14.6); RBC DIS.WIDTH-SD 58.5 % (39-53); RED BLOOD COUNT 3.77 M/uL (4.00-5.50); WHITE BLOOD COUNT 26.9 K/uL (4.1-10.2)
[2016-10-02 09:02] LABS: PLATELET COUNT 259 K/uL (156-360)
[2016-10-02 09:19] LABS: TROP-I INTERPRETATION NEGATIVE; TROPONIN-I 0.09 ng/mL (0.0-0.30)
[2016-10-02 10:11] LABS: ALKALINE PHOSPHATASE 77 IU/L (3-129); ANION GAP 11 MEQ/L (2-14); CHLORIDE 104 MEQ/L (99-109); GFR ESTIMATE (CALCULATED) 27 mL/min/; GLUCOSE 127 mg/dL (70-99); LACTATE DEHYDROGENASE 220 IU/L (20-246); MAGNESIUM 2.4 mg/dl (1.3-2.7); POTASSIUM 4.7 MEQ/L (3.7-5.4); SAMPLE HEMOLYSIS CHECK 0; SAMPLE ICTERIC CHECK 0; SAMPLE LIPEMIA CHECK 0; SODIUM 126 MEQ/L (136-147); TOTAL BILIRUBIN 2.9 MG/DL (0.0-1.0); UREA NITROGEN (BUN) 87 mg/dL (9-23)
[2016-10-02 15:02] LABS: TROP-I INTERPRETATION NEGATIVE; TROPONIN-I 0.05 ng/mL (0.0-0.30)
== END 2016-10-02 18:00 | disposition short-term general hospital (02) | DRG 432 ==
LOC: EME 16:43 → EDOF 21:40 → 4WEST 21:40 → EDOF 10-02 00:28 → 4WEST 10-02 18:00
PROVIDERS: Emergency Medicine
PROC: 30233N1 Transfusion of Nonautologous Red Blood Cells into Peripheral Vein, Percutaneous Approach (ICD-10-PCS; principal; 2016-10-01)
PROC: 05H533Z Insertion of Infusion Device into Right Subclavian Vein, Percutaneous Approach (ICD-10-PCS; 2016-10-02)
DX: K70.31 Alcoholic cirrhosis of liver with ascites (principal); I85.11 Secondary esophageal varices with bleeding; I86.4 Gastric varices; K65.2 Spontaneous bacterial peritonitis; R57.1 Hypovolemic shock; D62 Acute posthemorrhagic anemia; E87.1 Hypo-osmolality and hyponatremia; F10.20 Alcohol dependence, uncomplicated; K72.90 Hepatic failure, unspecified without coma; K76.6 Portal hypertension; N17.9 Acute kidney failure, unspecified; D69.6 Thrombocytopenia, unspecified; E88.09 Other disorders of plasma-protein metabolism, not elsewhere classified; I10 Essential (primary) hypertension; E87.2 Acidosis; Z66 Do not resuscitate; F17.200 Nicotine dependence, unspecified, uncomplicated
CPT/HCPCS: 71010; 71020; 80053; 81003; 82140; 82248; 83010 90; 83605; 83615; 83735; 84100; 84484; 85025; 85025 91; 85027; 85610; 85730; 86860; 86860 90; 86870; 86880; 86880 90; 86885 90; 86900; 86900 90; 86901; 86901 90; 86904 90; 86906 90; 86920; 87040; 87070; 87205; 87641; 89051; 99281; 99285; C9113; J0696; J1200; J2354; J2370; J2765; J2930; J3010; J3370; J7030; J7040; J7050; P9016

== ENCOUNTER → 2016-11-01 | Outpatient (CLI) | payer SELFPAY ==
[~2016-11-01] MED LIST changes: +CIPROFLOXACIN500 M1 PO; +ERGOCALCIF50000 UNIT PO; +FUROSEMIDE20 MG PO; +IRON18 MG PO; +LACTULOSE10 GM/151 PO; +MIDODRINE HCL5 MG PO; +SPIRONOLACTONE50 MG PO; +WARFARIN SODIU2.5 MG PO; +XIFAXAN550 MG PO
== END | disposition home or self-care (01) ==
LOC: RAD 09-16 13:15
PROC: 0W9G3ZZ Drainage of Peritoneal Cavity, Percutaneous Approach (ICD-10-PCS; principal; 2016-11-01)
DX: K70.31 Alcoholic cirrhosis of liver with ascites (principal)
CPT/HCPCS: 49083

== ENCOUNTER → 2016-11-07 | Outpatient (CLI) | payer OTHER ==
[2016-11-07 08:47] LABS: INTER. NORMALIZED RATIO 2.8; PROTHROMBIN TIME 32.2 SEC (10.2-12.9)
[2016-11-07 08:49] LABS: PTT 51.4 SEC (25-37)
== END | disposition home or self-care (01) ==
LOC: RAD 10-03 13:15
PROVIDERS: Radiology Diagnostic Radiology
PROC: 0W9G3ZZ Drainage of Peritoneal Cavity, Percutaneous Approach (ICD-10-PCS; principal; 2016-11-07)
DX: K70.31 Alcoholic cirrhosis of liver with ascites (principal)
CPT/HCPCS: 49083; 85610; 85730

== ENCOUNTER → 2016-11-13 | Outpatient (CLI) | payer OTHER | END | disposition home or self-care (01) | LOC: RAD 10-17 13:15 | PROC: 0W9G3ZZ Drainage of Peritoneal Cavity, Percutaneous Approach (ICD-10-PCS; principal; 2016-11-13) | DX: K70.31 Alcoholic cirrhosis of liver with ascites (principal) | CPT/HCPCS: 49083 ==

== ENCOUNTER → 2016-11-20 | Outpatient (CLI) | payer OTHER | END | disposition home or self-care (01) | LOC: RAD 10-09 13:15 | PROC: 0W9G3ZZ Drainage of Peritoneal Cavity, Percutaneous Approach (ICD-10-PCS; principal; 2016-11-20) | DX: K70.31 Alcoholic cirrhosis of liver with ascites (principal) | CPT/HCPCS: 49083 ==

== ENCOUNTER → 2016-11-26 | Outpatient (CLI) | payer OTHER | END | disposition home or self-care (01) | LOC: RAD 08:10 | PROC: 0W9G3ZZ Drainage of Peritoneal Cavity, Percutaneous Approach (ICD-10-PCS; principal; 2016-11-26) | DX: K70.31 Alcoholic cirrhosis of liver with ascites (principal) | CPT/HCPCS: 49083 ==

== ENCOUNTER → 2016-12-02 | Outpatient (CLI) | payer OTHER | END | disposition home or self-care (01) | LOC: RAD 13:01 | PROC: 0W9G3ZZ Drainage of Peritoneal Cavity, Percutaneous Approach (ICD-10-PCS; principal; 2016-12-02) | DX: K70.31 Alcoholic cirrhosis of liver with ascites (principal) | CPT/HCPCS: 49083 ==

== ENCOUNTER → 2016-12-16 | Outpatient (CLI) | payer OTHER ==
[~2016-12-16] MED LIST changes: +CIPRO500 MG PO
== END | disposition home or self-care (01) ==
LOC: RAD 12-13 08:15
PROC: 0W9G3ZZ Drainage of Peritoneal Cavity, Percutaneous Approach (ICD-10-PCS; principal; 2016-12-16)
DX: K70.31 Alcoholic cirrhosis of liver with ascites (principal)
CPT/HCPCS: 49083

== ENCOUNTER → 2016-12-23 | Outpatient (CLI) | payer OTHER | END | disposition home or self-care (01) | LOC: RAD 08:05 | PROC: 0W9G3ZZ Drainage of Peritoneal Cavity, Percutaneous Approach (ICD-10-PCS; principal; 2016-12-23) | DX: K70.31 Alcoholic cirrhosis of liver with ascites (principal) | CPT/HCPCS: 49083 ==

== ENCOUNTER → 2016-12-26 | Outpatient (CLI) | payer OTHER ==
[~2016-12-26] MED LIST changes: +ALEVE220 MG PO; +PROAMATINE5 MG PO
== END | disposition home or self-care (01) ==
LOC: RAD 13:02
PROC: 0W9G3ZZ Drainage of Peritoneal Cavity, Percutaneous Approach (ICD-10-PCS; principal; 2016-12-26)
DX: K70.31 Alcoholic cirrhosis of liver with ascites (principal)
CPT/HCPCS: 49083

== ENCOUNTER 2016-12-31 13:57 | Inpatient (IN) | payer OTHER ==
[~2016-12-31] VITALS: Ht 182.9 cm; Wt 89.1 kg
[~2016-12-31 13:57] MED LIST changes: -ALEVE220 MG PO; -PROAMATINE5 MG PO
[2016-12-31 14:46] LABS: HEMATOCRIT 30.9 % (38.0-50.0); MCH 31.2 PG (29.0-34.0); MCV 94.5 FL (86-99); RBC DIS.WIDTH-SD 62.4 % (39-53); RED BLOOD COUNT 3.27 M/uL (4.00-5.50)
[2016-12-31 14:49] LABS: CHLORIDE 108 mEq/L (99-109); POTASSIUM 3.5 mEq/L (3.7-5.4); SODIUM 141 mEq/L (136-147); WHITE BLOOD COUNT 1.6 K/uL (4.1-10.2)
[2016-12-31 14:52] LABS: GLUCOSE 112 mg/dL (70-99)
[2016-12-31 14:53] LABS: ANION GAP 11 MEQ/L (2-14)
[2016-12-31 14:54] LABS: TOTAL BILIRUBIN 3.9 mg/dL (0.0-1.0)
[2016-12-31 14:55] LABS: ALKALINE PHOSPHATASE 120 IU/L (3-129); GFR ESTIMATE (CALCULATED) > 59 mL/min/
[2016-12-31 14:56] LABS: UREA NITROGEN (BUN) 15 mg/dL (9-23)
[2016-12-31 14:59] LABS: LIPASE 82 U/L (1.0-51.0)
[2016-12-31 15:42] LABS: MEAN PLAT.VOLUME 11.5 uM^3 (9.0-12.4); PLATELET COUNT 49 K/uL (156-360)
[2016-12-31 15:49] LABS: HEMATOLOGY COMMENT 1 SN; IMM.PLATELET FRACTION 2.4 (1-7)
[2016-12-31 15:50] LABS: PLAT.SUFFICIENCY VERY DECREASED
[2016-12-31 17:16] LABS: INTER. NORMALIZED RATIO 1.9; PROTHROMBIN TIME 20.9 SEC (10.2-12.9)
[2016-12-31 18:46] LABS: ADD MIUA? YES; BILIRUBIN NEGATIVE; BLOOD SMALL; COLOR YELLOW ((YELLOW)); GLUCOSE (STRIP) NEGATIVE; KETONES NEGATIVE; LEUKOCYTES NEGATIVE; NITRITE NEGATIVE; PROTEIN (STRIP) NEGATIVE; SPECIFIC GRAVITY 1.042 (1.000-1.030); UROBILINOGEN 0.2 MG/DL (0.2-1.0)
[2016-12-31 19:17] LABS: BACTERIA NONE SEEN /HPF; EPITHELIAL CELLS NONE SEEN /HPF; HYALINE CASTS 0-5 /LPF; MUCUS TRACE /LPF; RED BLOOD CELLS 0-5 /HPF (0-5); UCUL ADDED? NO; WHITE BLOOD CELLS 0-5 /HPF (0-5)
[2016-12-31] MEDS ORDERED: XIFAXAN550 MG PO (22:09)
[2016-12-31] MEDS ORDERED: PROAMATINE5 MG PO (22:09)
[2016-12-31] MEDS ORDERED: ALEVE220 MG PO (22:10)
[2017-01-01] VITALS (8 sets, daily range): BP systolic 102–143; BP diastolic 56–75
[2017-01-01 06:55] LABS: INTER. NORMALIZED RATIO 1.8; PROTHROMBIN TIME 19.8 SEC (10.2-12.9)
[2017-01-01 13:13] LABS: HEMATOCRIT 28.1 % (38.0-50.0); MCHC 32.4 G/DL (30.0-36.0); RBC DIS.WIDTH-CV 17.6 % (11.8-14.6); RED BLOOD COUNT 2.84 M/uL (4.00-5.50); WHITE BLOOD COUNT 2.4 K/uL (4.1-10.2)
[2017-01-01 13:18] LABS: MCV 98.9 FL (86-99)
[2017-01-01 13:28] LABS: ALKALINE PHOSPHATASE 85 IU/L (3-129); ANION GAP 7 MEQ/L (2-14); CHLORIDE 108 MEQ/L (99-109); DIRECT BILIRUBIN 0.9 mg/dL (0.0-0.3); GFR ESTIMATE (CALCULATED) > 59 mL/min/; GLUCOSE 88 mg/dL (70-99); MAGNESIUM 1.8 mg/dl (1.3-2.7); POTASSIUM 3.6 MEQ/L (3.7-5.4); SAMPLE HEMOLYSIS CHECK 0; SAMPLE ICTERIC CHECK 0; SAMPLE LIPEMIA CHECK 0; SODIUM 140 MEQ/L (136-147); TOTAL BILIRUBIN 2.5 MG/DL (0.0-1.0); UREA NITROGEN (BUN) 16 mg/dL (9-23)
[2017-01-01 13:47] LABS: IMM.PLATELET FRACTION 3.2 (1-7); PLAT.SUFFICIENCY DECREASED; PLATELET COUNT 45 K/uL (156-360)
[2017-01-02 03:26] VITALS: BP 103/57
[2017-01-02 06:06] LABS: EOSINOPHIL (%) 3.2 % (0-5); EOSINOPHIL COUNT 0.1 K/uL (0-0.3); HEMATOCRIT 28.4 % (38.0-50.0); IMMATURE GRANULOCYTE (%) 0.6 % (0.0-0.7); INSTRUMENT ABS NEUTROPHIL CT 2.6 K/uL; LYMPHOCYTE COUNT 0.2 K/uL (1.0-2.8); MCHC 32.7 G/DL (30.0-36.0); MCV 97.6 FL (86-99); MONOCYTE (%) 12.9 % (3-12); MONOCYTE COUNT 0.4 K/uL (0-0.8); NEUTROPHIL (%) 76.8 % (45-76); NEUTROPHIL COUNT 2.6 K/uL (1.8-6.4); RBC DIS.WIDTH-CV 17.3 % (11.8-14.6); RED BLOOD COUNT 2.91 M/uL (4.00-5.50); WHITE BLOOD COUNT 3.4 K/uL (4.1-10.2)
[2017-01-02 06:15] LABS: INTER. NORMALIZED RATIO 1.8; PROTHROMBIN TIME 20.3 SEC (10.2-12.9)
[2017-01-02 06:29] LABS: ANION GAP 8 MEQ/L (2-14); CHLORIDE 110 MEQ/L (99-109); GFR ESTIMATE (CALCULATED) > 59 mL/min/; GLUCOSE 78 mg/dL (70-99); POTASSIUM 3.7 MEQ/L (3.7-5.4); SAMPLE HEMOLYSIS CHECK 0; SAMPLE ICTERIC CHECK 0; SAMPLE LIPEMIA CHECK 0; SODIUM 140 MEQ/L (136-147); UREA NITROGEN (BUN) 17 mg/dL (9-23)
[2017-01-02 06:31] LABS: ALKALINE PHOSPHATASE 88 IU/L (3-129); ANION GAP 9 MEQ/L (2-14); CHLORIDE 109 MEQ/L (99-109); GFR ESTIMATE (CALCULATED) > 59 mL/min/; GLUCOSE 78 mg/dL (70-99); POTASSIUM 3.7 MEQ/L (3.7-5.4); SAMPLE HEMOLYSIS CHECK 0; SAMPLE ICTERIC CHECK 0; SAMPLE LIPEMIA CHECK 0; SODIUM 140 MEQ/L (136-147); TOTAL BILIRUBIN 2.5 MG/DL (0.0-1.0); UREA NITROGEN (BUN) 17 mg/dL (9-23)
[2017-01-02 06:42] LABS: IMM.PLATELET FRACTION 2.4 (1-7); MEAN PLAT.VOLUME 11.3 uM^3 (9.0-12.4); PLAT.SUFFICIENCY DECREASED; PLATELET COUNT 49 K/uL (156-360)
[2017-01-02 07:43] VITALS: BP 112/65
[2017-01-02 11:33] VITALS: BP 115/59
[2017-01-02 13:57] LABS: TYPE OF FLUID PARACENTESIS
[2017-01-02 14:49] LABS: BODY FLUID PROTEIN < 3.0 G/DL
[2017-01-02 14:56] LABS: BODY FLUID EOSINOPHILS 0 % (0-25); BODY FLUID RBC'S 5000 /MM^3 (0-100); BODY FLUID WBC'S 122 /MM^3 (0-500); MONONUCLEAR WBC'S 93 %; POLYNUCLEAR WBC'S 7 % (0-25)
[2017-01-02 16:11] VITALS: BP 126/74
[2017-01-02 19:41] VITALS: BP 118/61
[2017-01-02 23:19] VITALS: BP 117/64
[2017-01-03 05:28] LABS: EOSINOPHIL (%) 2.4 % (0-5); EOSINOPHIL COUNT 0.1 K/uL (0-0.3); HEMATOCRIT 28.9 % (38.0-50.0); IMMATURE GRANULOCYTE (%) 0.5 % (0.0-0.7); LYMPHOCYTE COUNT 0.2 K/uL (1.0-2.8); MCH 31.1 PG (29.0-34.0); MCHC 32.2 G/DL (30.0-36.0); MCV 96.7 FL (86-99); MEAN PLAT.VOLUME 11.5 uM^3 (9.0-12.4); MONOCYTE (%) 12.6 % (3-12); MONOCYTE COUNT 0.5 K/uL (0-0.8); NEUTROPHIL (%) 77.7 % (45-76); PLATELET COUNT 53 K/uL (156-360); RBC DIS.WIDTH-CV 16.7 % (11.8-14.6); RBC DIS.WIDTH-SD 59.3 % (39-53); RED BLOOD COUNT 2.99 M/uL (4.00-5.50); WHITE BLOOD COUNT 3.8 K/uL (4.1-10.2)
[2017-01-03 05:32] LABS: PROTHROMBIN TIME 23.1 SEC (10.2-12.9)
[2017-01-03 05:52] LABS: ALKALINE PHOSPHATASE 79 IU/L (3-129); ANION GAP 6 MEQ/L (2-14); CHLORIDE 109 MEQ/L (99-109); GFR ESTIMATE (CALCULATED) > 59 mL/min/; GLUCOSE 85 mg/dL (70-99); POTASSIUM 4.2 MEQ/L (3.7-5.4); SAMPLE HEMOLYSIS CHECK 0; SAMPLE ICTERIC CHECK 0; SAMPLE LIPEMIA CHECK 0; SODIUM 140 MEQ/L (136-147); TOTAL BILIRUBIN 2.1 MG/DL (0.0-1.0); UREA NITROGEN (BUN) 16 mg/dL (9-23)
[2017-01-03 07:54] VITALS: BP 107/63
[2017-01-03 17:13] VITALS: BP 142/65
[2017-01-03] MEDS ORDERED: COUMADIN1 MG PO (20:21)
[2017-01-03] MEDS ORDERED: ONDANSETRON4 MG/2 ML IV (20:21)
[2017-01-03] MEDS ORDERED: DUONEB 2.5-0.5 M3 ML AEROSOL (20:21)
[2017-01-03] MEDS ORDERED: DILAUDID 00.5 MG/0.5 IV (20:21)
[2017-01-03] MEDS ORDERED: FAMOTIDINE20 MG PO (20:21)
[2017-01-03 22:30] VITALS: BP 142/65
== END 2017-01-04 01:11 | disposition short-term general hospital (02) | DRG 388 ==
LOC: EME 13:57 → EDOF 23:58 → ENRESERV 01-01 00:02 → 3EAST 01-01 01:35
PROVIDERS: Hospitalist; Internal Medicine
PROC: 0W9G3ZZ Drainage of Peritoneal Cavity, Percutaneous Approach (ICD-10-PCS; principal; 2017-01-02)
DX: K56.60 Unspecified intestinal obstruction (principal); D61.818 Other pancytopenia; Z76.82 Awaiting organ transplant status; G93.40 Encephalopathy, unspecified; L03.311 Cellulitis of abdominal wall; E88.09 Other disorders of plasma-protein metabolism, not elsewhere classified; K76.6 Portal hypertension; K70.31 Alcoholic cirrhosis of liver with ascites; K72.90 Hepatic failure, unspecified without coma; E86.0 Dehydration; E87.6 Hypokalemia; K31.89 Other diseases of stomach and duodenum; K42.9 Umbilical hernia without obstruction or gangrene; F10.21 Alcohol dependence, in remission; J44.9 Chronic obstructive pulmonary disease, unspecified; G89.29 Other chronic pain; F17.200 Nicotine dependence, unspecified, uncomplicated; Z75.1 Person awaiting admission to adequate facility elsewhere; Z79.01 Long term (current) use of anticoagulants; Z86.711 Personal history of pulmonary embolism; Z86.718 Personal history of other venous thrombosis and embolism; Z91.19 Patient's noncompliance with other medical treatment and regimen; Z82.3 Family history of stroke; Z82.49 Family history of ischemic heart disease and other diseases of the circulatory system
CPT/HCPCS: 36415; 49083; 70450; 74000; 74177; 76705; 80048; 80053; 80076; 81003; 83605; 83690; 83735; 84157; 85025; 85027; 85610; 85730; 87070; 87075; 87205; 89051; 99202; 99281; 99285; G0378; J0696; J1170; J2270; J2405; J7030; J7050; S0030